=== PATIENT | male | born 1995 | race Hispanic/Latino ===

== ENCOUNTER 2018-04-09 16:51 | Emergency (ER) | payer SELFPAY ==
--- NOTE | 2018-04-09 17:18 | ER ---
Nurse's Notes [facility] Name: Brando Taveras Age: 22 yrs Sex: Male : 1995 Arrival Date: 04/09/2018 Time: 16:53 Bed 12 Private MD: None, None Diagnosis: Impacted cerumen, right ear;Otitis media, unspecified, right ear Presentation: 04/09 17:06 Presenting complaint: Patient states: Decreased hearing in right ear after swimming in ocean yesterday. Denies pain. Transition of care: patient was not received from another setting of care. Onset of symptoms was April 09, 2018. Risk Assessment: Do you want to hurt yourself or someone else? Patient reports no desire to harm self or others. 17:06 Method Of Arrival: Ambulatory 17:06 Acuity: TIM 4 17:13 Initial Sepsis Screen: Does the patient meet any 2 criteria? No. Patient's initial rv sepsis screen is negative. Does the patient have a suspected source of infection? No. Patient's initial sepsis screen is negative. Care prior to arrival: None. Historical: - Allergies: 17:07 No Known Allergies; hb - Home Meds: 17:07 None [Active]; hb - PMHx: 17:07 None; hb - PSHx: 17:07 None; hb - Immunization history:: Adult Immunizations up to date. - Social history:: Smoking status: Patient/guardian denies using tobacco. - Ebola Screening: : No symptoms or risks identified at this time. Screenin:13 Abuse screen: Denies threats or abuse. Denies injuries from another. Nutritional rv screening: No deficits noted. Tuberculosis screening: No symptoms or risk factors identified. Fall Risk None identified. Assessment: 17:12 General: Appears in no apparent distress. comfortable, Behavior is calm, cooperative. rv Pain: Denies pain. Neuro: Level of Consciousness is awake, alert, obeys commands, Oriented to person, place, time, situation. Cardiovascular: Capillary refill < 3 seconds. Respiratory: Airway is patent. GI: No signs and/or symptoms were reported involving the gastrointestinal system. : No signs and/or symptoms were reported regarding the genitourinary system. EENT: Tympanic membrane reddened on right ear. Vital Signs: 17:07 BP 144 / 79; Pulse 82; Resp 16; Temp 97.1; Pulse Ox 99% on R/A; Weight 122.47 kg; hb Height 5 ft. 11 in. (180.34 cm); Pain 0/10; 17:07 Body Mass Index 37.66 (122.47 kg, 180.34 cm) hb ED Course: 16:53 Patient arrived in ED. sb2 16:54 None, None is Private Physician. sb2 17:07 Triage completed. hb 17:07 Arm band placed on right wrist. EKG completed in triage. Results shown to MD. EKG hb completed in triage. Results shown to MD. 17:11 Chang Terrazas NP is PHCP. pm1 17:11 Norman Sy MD is Attending Physician. pm1 17:14 Patient has correct armband on for positive identification. Call light in reach. NIBP rv on. 18:04 No provider procedures requiring assistance completed. Patient did not have IV access rv during this emergency room visit. Administered Medications: No medications were administered Outcome: 17:17 Discharge ordered by MD. pm1 18:05 Discharged to home ambulatory. rv 18:05 Condition: improved 18:05 Discharge instructions given to patient, Instructed on discharge instructions, follow up and referral plans. medication usage, Demonstrated understanding of instructions, follow-up care, medications, Prescriptions given X 1. 18:05 Patient left the ED. rv Signatures: Chang Terrazas NP PROMOTIONS DIRECTOR pm1 Arti Krueger, RN RN Juana Sher sb2 Tuan Chen RN RN rv
--- NOTE | 2018-04-09 17:18 | EDPHYS ---
Physician Documentation [facility] Name: Brando Taveras Age: 22 yrs Sex: Male : 1995 Arrival Date: 04/09/2018 Time: 16:53 Bed 12 Private MD: None, None ED Physician Norman Sy HPI: 04/09 17:19 This 22 yrs old Male presents to ER via Ambulatory with complaints of pm1 Decreased hearing right ear. 17:19 The patient presents with hearing loss, partial. The complaints affect the right ear. pm1 Onset: The symptoms/episode began/occurred yesterday. Modifying factors: The symptoms are alleviated by nothing, the symptoms are aggravated by nothing. Associated signs and symptoms: Pertinent negatives: No ear pain. No fever. Severity of symptoms: in the emergency department the symptoms are unchanged. The patient has experienced a previous episode, approximately 3 months ago, and the symptoms today are exactly the same. The patient has not recently seen a physician. Patient swimming in the ocean and using q-tips afterwards. Had similar presentation of impacted cerumen about 3 months ago that improved after irrigation. No fever or ear pain present. Historical: - Allergies: 17:07 No Known Allergies; hb - Home Meds: 17:07 None [Active]; hb - PMHx: 17:07 None; hb - PSHx: 17:07 None; hb - Immunization history:: Adult Immunizations up to date. - Social history:: Smoking status: Patient/guardian denies using tobacco. - Ebola Screening: : No symptoms or risks identified at this time. ROS: 17:19 Constitutional: Negative for fever, chills, and weight loss, Eyes: Negative for injury, pm1 pain, redness, and discharge. 17:19 Neck: Negative for injury, pain, and swelling, Cardiovascular: Negative for chest pain, palpitations, and edema, Respiratory: Negative for shortness of breath, cough, wheezing, and pleuritic chest pain, Abdomen/GI: Negative for abdominal pain, nausea, vomiting, diarrhea, and constipation, Back: Negative for injury and pain, MS/Extremity: Negative for injury and deformity, Skin: Negative for injury, rash, and discoloration, Neuro: Negative for headache, weakness, numbness, tingling, and seizure. 17:19 ENT: Positive for hearing loss, Negative for drainage from ear(s), ear pain, sore throat, difficulty swallowing, difficulty handling secretions, hoarseness. Exam: 17:19 Constitutional: This is a well developed, well nourished patient who is awake, alert, pm1 and in no acute distress. Head/Face: Normocephalic, atraumatic. Eyes: Pupils equal round and reactive to light, extra-ocular motions intact. Lids and lashes normal. Conjunctiva and sclera are non-icteric and not injected. Cornea within normal limits. Periorbital areas with no swelling, redness, or edema. 17:19 Neck: Trachea midline, no thyromegaly or masses palpated, and no cervical lymphadenopathy. Supple, full range of motion without nuchal rigidity, or vertebral point tenderness. No Meningismus. Chest/axilla: Normal chest wall appearance and motion. Nontender with no deformity. No lesions are appreciated. Cardiovascular: Regular rate and rhythm with a normal S1 and S2. No gallops, murmurs, or rubs. Normal PMI, no JVD. No pulse deficits. Respiratory: Lungs have equal breath sounds bilaterally, clear to auscultation and percussion. No rales, rhonchi or wheezes noted. No increased work of breathing, no retractions or nasal flaring. Abdomen/GI: Soft, non-tender, with normal bowel sounds. No distension or tympany. No guarding or rebound. No evidence of tenderness throughout. Back: No spinal tenderness. No costovertebral tenderness. Full range of motion. Skin: Warm, dry with normal turgor. Normal color with no rashes, no lesions, and no evidence of cellulitis. MS/ Extremity: Pulses equal, no cyanosis. Neurovascular intact. Full, normal range of motion. 17:19 ENT: External ear(s): are unremarkable, Ear canal(s): cerumen impaction, bilaterally, TM's: not visable, because of cerumen, Nose: is normal, Mouth: is normal, Posterior pharynx: is normal. 17:19 Neuro: Orientation: is normal, Motor: moves all fours, Gait: is steady, at a normal pace, without difficulty. Vital Signs: 17:07 BP 144 / 79; Pulse 82; Resp 16; Temp 97.1; Pulse Ox 99% on R/A; Weight 122.47 kg; hb Height 5 ft. 11 in. (180.34 cm); Pain 0/10; 17:07 Body Mass Index 37.66 (122.47 kg, 180.34 cm) hb MDM: 17:11 Patient medically screened. pm1 17:17 Data reviewed: vital signs. Data interpreted: Pulse oximetry: on room air is 99 %. pm1 Interpretation: normal. Counseling: I had a detailed discussion with the patient and/or guardian regarding: the historical points, exam findings, and any diagnostic results supporting the discharge/admit diagnosis, the need for outpatient follow up, to return to the emergency department if symptoms worsen or persist or if there are any questions or concerns that arise at home. 04/09 17:18 Order name: [facility]. Order: Right ear irrigation; Complete Time: 18:04 pm1 Administered Medications: No medications were administered Disposition: 18:33 Co-signature as Attending Physician, Norman Sy MD. rn Disposition: 04/09/18 17:17 Discharged to Home. Impression: Impacted cerumen, right ear, Otitis media, unspecified, right ear. - Condition is Stable. - Discharge Instructions: Earwax Buildup, Adult, Otitis Media, Adult, Ear Irrigation. - Prescriptions for Amoxicillin 500 mg Oral Capsule - take 1 capsule by ORAL route every 8 hours for 10 days; 30 tablet. - Medication Reconciliation Form, Thank You Letter, Antibiotic Education, Prescription Opioid Use form. - Follow up: Emergency Department; When: As needed; Reason: Worsening of condition. Follow up: Private Physician; When: As needed; Reason: Recheck today's complaints, Continuance of care, Re-evaluation by your physician. - Problem is new. - Symptoms have improved. Signatures: Norman Sy MD MD rn Marinas, Patrick, CLEMENTINE DITCH RIDER pm1 Arti Krueger, RN RN Tuan Chen RN RN rv Corrections: (The following items were deleted from the chart) 18: 17:17 04/09/2018 17:17 Discharged to Home. Impression: Impacted cerumen, right ear. pm1 Condition is Stable. Forms are Medication Reconciliation Form, Thank You Letter, Antibiotic Education, Prescription Opioid Use. Follow up: Emergency Department; When: As needed; Reason: Worsening of condition. Follow up: Private Physician; When: As needed; Reason: Recheck today's complaints, Continuance of care, Re-evaluation by your physician. Problem is new. Symptoms have improved. pm1 18:05 18:01 04/09/2018 17:17 Discharged to Home. Impression: Impacted cerumen, right ear; rv Otitis media, unspecified, right ear. Condition is Stable. Discharge Instructions: Earwax Buildup, Adult, Ear Irrigation. Forms are Medication Reconciliation Form, Thank You Letter, Antibiotic Education, Prescription Opioid Use. Follow up: Emergency Department; When: As needed; Reason: Worsening of condition. Follow up: Private Physician; When: As needed; Reason: Recheck today's complaints, Continuance of care, Re-evaluation by your physician. Problem is new. Symptoms have improved. pm1
== END 2018-04-09 18:05 | disposition home or self-care (01) ==
LOC: ER 16:51
DX: H66.91 Otitis media, unspecified, right ear (principal)
CPT/HCPCS: 99282

== ENCOUNTER 2018-10-22 16:45 | Emergency (ER) | payer SELFPAY ==
--- NOTE | 2018-10-22 18:05 | ER ---
Nurse's Notes [facility] Name: Brando Taveras Age: 23 yrs Sex: Male : 1995 Arrival Date: 10/22/2018 Time: 16:45 Bed Treatment Private MD: Diagnosis: Impacted cerumen, bilateral Presentation: 10/22 16:52 Presenting complaint: Patient states: L ear pain and muffled sounds that began this ss morning. Denies fever. Transition of care: patient was not received from another setting of care. Onset of symptoms was October 22, 2018. Risk Assessment: Do you want to hurt yourself or someone else? Patient reports no desire to harm self or others. Initial Sepsis Screen: Does the patient meet any 2 criteria? No. Patient's initial sepsis screen is negative. Does the patient have a suspected source of infection? No. Patient's initial sepsis screen is negative. Care prior to arrival: None. 16:52 Method Of Arrival: Ambulatory ss 16:52 Acuity: TIM 5 ss Historical: - Allergies: 16:53 No Known Allergies; ss - Home Meds: 16:53 None [Active]; ss - PMHx: 16:53 None; ss - PSHx: 16:53 None; ss - Immunization history:: Adult Immunizations unknown. - Social history:: Smoking status: Patient/guardian denies using tobacco. - Ebola Screening: : Patient denies exposure to infectious person Patient denies travel to an Ebola-affected area in the 21 days before illness onset. Screenin:18 Abuse screen: Denies threats or abuse. Denies injuries from another. Nutritional aj1 screening: No deficits noted. Tuberculosis screening: No symptoms or risk factors identified. 18:20 Fall Risk None identified. aj1 Assessment: 18:18 General: Appears in no apparent distress. comfortable, Behavior is calm, cooperative, aj1 appropriate for age. Pain: Complains of pain in left ear. Neuro: Level of Consciousness is awake, alert, obeys commands. Cardiovascular: Patient's skin is warm and dry. Respiratory: Airway is patent Respiratory effort is even, unlabored, Respiratory pattern is regular, symmetrical. EENT: Reports left ear pain. Vital Signs: 16:53 Pulse 91; Resp 16; Temp 97.9(TE); Pulse Ox 98% on R/A; Weight 122.47 kg; Height 5 ft. ss 11 in. (180.34 cm); Pain 0/10; 16:54 BP 115 / 78; ss 16:53 Body Mass Index 37.66 (122.47 kg, 180.34 cm) ED Course: 16:45 Patient arrived in ED. as 16:53 Triage completed. ss 16:53 Arm band placed on right wrist. ss 16:57 Ayesha Tenorio F[facility]-C [facility]. kb 16:57 Moose Abraham MD is Attending Physician. kb 17:35 Mary Ellen Valiente, RN is Primary Nurse. iw 18:18 Patient has correct armband on for positive identification. aj1 18:18 No provider procedures requiring assistance completed. Patient did not have IV access aj1 during this emergency room visit. Administered Medications: No medications were administered Outcome: 18:04 Discharge ordered by . kb 18:18 Discharged to home ambulatory. aj1 18:18 Condition: good 18:18 Discharge instructions given to patient, Instructed on discharge instructions, follow up and referral plans. Demonstrated understanding of instructions, follow-up care. 18:20 Patient left the ED. aj1 Signatures: Ayesha Tenorio FNP-C FNP-Milly Erickson RN RN ajSarah Shah as Mary Ellen Valiente, ZAHIDA TEAGUE Halle Trujillo RN RN Corrections: (The following items were deleted from the chart) 16:54 16:52 Presenting complaint: Patient states: L ear pain that began this morning. Denies fever
--- NOTE | 2018-10-22 18:05 | EDPHYS ---
Physician Documentation [facility] Name: Brando Taveras Age: 23 yrs Sex: Male : 1995 Arrival Date: 10/22/2018 Time: 16:45 Bed Treatment Private MD: ED Physician Moose Abraham HPI: 10/22 17:45 This 23 yrs old Male presents to ER via Ambulatory with complaints of Ear Pain.kb 17:45 The patient presents with a fullness. The complaints affect the left ear. Onset: The kb symptoms/episode began/occurred this morning. Modifying factors: The symptoms are alleviated by nothing, the symptoms are aggravated by nothing. Associated signs and symptoms: The patient has no apparent associated signs or symptoms. Severity of symptoms: At their worst the symptoms were moderate in the emergency department the symptoms are unchanged. The patient has experienced similar episodes in the past. The patient has not recently seen a physician. Pt states he woke up with muffled hearing on left side. States he has had this before and it was a buildup of ear wax. States this is his third visit here for this and they always irrigate his ear and it makes it better. . Historical: - Allergies: 16:53 No Known Allergies; ss - Home Meds: 16:53 None [Active]; ss - PMHx: 16:53 None; ss - PSHx: 16:53 None; ss - Immunization history:: Adult Immunizations unknown. - Social history:: Smoking status: Patient/guardian denies using tobacco. - Ebola Screening: : Patient denies exposure to infectious person Patient denies travel to an Ebola-affected area in the 21 days before illness onset. ROS: 17:43 Constitutional: Negative for fever, chills, and weight loss, Cardiovascular: Negative kb for chest pain, palpitations, and edema, Respiratory: Negative for shortness of breath, cough, wheezing, and pleuritic chest pain, Abdomen/GI: Negative for abdominal pain, nausea, vomiting, diarrhea, and constipation, MS/Extremity: Negative for injury and deformity, Skin: Negative for injury, rash, and discoloration, Neuro: Negative for headache, weakness, numbness, tingling, and seizure. 17:43 ENT: Positive for muffled left ear. Exam: 17:43 Constitutional: This is a well developed, well nourished patient who is awake, alert, kb and in no acute distress. Head/Face: Normocephalic, atraumatic. Chest/axilla: Normal chest wall appearance and motion. Nontender with no deformity. No lesions are appreciated. Cardiovascular: Regular rate and rhythm with a normal S1 and S2. No gallops, murmurs, or rubs. Normal PMI, no JVD. No pulse deficits. Respiratory: Lungs have equal breath sounds bilaterally, clear to auscultation and percussion. No rales, rhonchi or wheezes noted. No increased work of breathing, no retractions or nasal flaring. Abdomen/GI: Soft, non-tender, with normal bowel sounds. No distension or tympany. No guarding or rebound. No evidence of tenderness throughout. Skin: Warm, dry with normal turgor. Normal color with no rashes, no lesions, and no evidence of cellulitis. MS/ Extremity: Pulses equal, no cyanosis. Neurovascular intact. Full, normal range of motion. Neuro: Awake and alert, GCS 15, oriented to person, place, time, and situation. Cranial nerves II-XII grossly intact. Motor strength 5/5 in all extremities. Sensory grossly intact. Cerebellar exam normal. Normal gait. 17:43 ENT: External ear(s): are unremarkable, Ear canal(s): cerumen impaction, that is moderate, that is hard, bilaterally, TM's: not visable, Nose: is normal, Mouth: is normal, Posterior pharynx: is normal. Vital Signs: 16:53 Pulse 91; Resp 16; Temp 97.9(TE); Pulse Ox 98% on R/A; Weight 122.47 kg; Height 5 ft. ss 11 in. (180.34 cm); Pain 0/10; 16:54 BP 115 / 78; ss 16:53 Body Mass Index 37.66 (122.47 kg, 180.34 cm) ss MDM: 17:35 Patient medically screened. kb 17:45 Data reviewed: vital signs, nurses notes. Data interpreted: Pulse oximetry: on room air kb is 98 %. Interpretation: normal. Counseling: I had a detailed discussion with the patient and/or guardian regarding: the historical points, exam findings, and any diagnostic results supporting the discharge/admit diagnosis, the need for outpatient follow up, an ENT specialist, to return to the emergency department if symptoms worsen or persist or if there are any questions or concerns that arise at home. 18:05 ED course: left ear irrigated with warm water. some cerumen cleared from canal. Pt kb educated to use cerumen drops and follow up with ENT . 10/22 17:43 Order name: [facility]. Order: irrigate left ear; Complete Time: 18:18 kb Administered Medications: No medications were administered Disposition: 10/23 07:01 Co-signature as Attending Physician, Moose Abraham MD I agree with the assessment and stephanie plan of care. Disposition: 10/22/18 18:04 Discharged to Home. Impression: Impacted cerumen, bilateral. - Condition is Stable. - Discharge Instructions: Earwax Buildup, Adult. - Medication Reconciliation Form, Thank You Letter, Antibiotic Education, Prescription Opioid Use form. - Follow up: Emergency Department; When: As needed; Reason: Worsening of condition. Follow up: Private Physician; When: 2 - 3 days; Reason: Recheck today's complaints, Continuance of care, Re-evaluation by your physician. Signatures: Ayesha Tenorio, TIM-C TIM-Milly Erickson RN RN aj1 Moose Abraham MD MD cha Smirch, Shelby, RN RN ss Corrections: (The following items were deleted from the chart) 10/22 18:20 18:04 10/22/2018 18:04 Discharged to Home. Impression: Impacted cerumen, bilateral. aj1 Condition is Stable. Discharge Instructions: Earwax Buildup, Adult. Forms are Medication Reconciliation Form, Thank You Letter, Antibiotic Education, Prescription Opioid Use. Follow up: Emergency Department; When: As needed; Reason: Worsening of condition. Follow up: Private Physician; When: 2 - 3 days; Reason: Recheck today's complaints, Continuance of care, Re-evaluation by your physician. kb
== END 2018-10-22 18:20 | disposition home or self-care (01) ==
LOC: ER 16:45
PROC: 3E1B78Z Irrigation of Ear using Irrigating Substance, Via Natural or Artificial Opening (ICD-10-PCS; principal; 2018-10-22)
DX: H61.23 Impacted cerumen, bilateral (principal)
CPT/HCPCS: 99281